=== PATIENT | female | born 1980 | race Caucasian/White ===

== ENCOUNTER 2020-08-04 01:09 | Outpatient (CLI) | payer OTHER, SELFPAY ==
[2020-08-04 19:31] LABS: SARS-CoV-2 RNA PCR Negative
== END 2020-08-04 01:10 | disposition home or self-care (01) ==
LOC: ANHCOVIDDT 01:09
PROVIDERS: PCP Family Medicine; Visit Provider Obstetrics & Gynecology
DX: Z01.818 Encounter for other preprocedural examination (principal); Z20.828 Contact with and (suspected) exposure to other viral communicable diseases
CPT/HCPCS: 87635; C9803; U0003

== ENCOUNTER 2020-08-06 00:56 | Day surgery (SDC) | payer OTHER, SELFPAY ==
[2020-07-27 13:38] VITALS: BMI 25.2
--- NOTE | 2020-08-05 14:17 | WPDANESEPP ---
Anes - Eval Pre Procedure Procedure: Operation Date: 08/06/20 07:30 Proposed Procedures p Loop Electrical Excision Procedure - Jose Reza MD Date/Time: 08/05/20 14:17 Pre Op Diagnosis: HUSSAIN II Patient Data Age: 40 Gender: F Height: 1.6 m Weight: 64.5 kg Allergies Allergy/AdvReac Type Severity Reaction Status Date / Time Penicillins Allergy Severe Difficulty Verified 07/27/20 12:19 Breathing/RASH adhesive AdvReac Mild Hives Verified 07/27/20 12:19 Home Medications Medication Instructions Recorded Confirmed Type Adults Multivitamin 1 tablet PO DAILY 07/06/19 07/27/20 History Calcium 600 + D(3) 1 cap PO DAILY 07/06/19 07/27/20 History cetirizine 10 mg PO DAILY 07/06/19 07/27/20 History citalopram [Celexa] 40 mg PO DAILY 07/06/19 07/27/20 History omeprazole 20 mg PO BID 07/06/19 07/27/20 History topiramate 50 mg PO BID 07/06/19 07/27/20 History cholecalciferol (vitamin D3) 50 mcg PO DAILY 07/27/20 07/27/20 History fluticasone propionate 2 spray INTRANASAL DAILY 07/27/20 07/27/20 History hydroxyzine HCl 25 mg PO PRN PRN 07/27/20 07/27/20 History Patient hx anesthesia problems: none Family hx anesthesia problems: none PMFSH Past Medical History Medical History Anxiety Depression GERD (gastroesophageal reflux disease) Surgical History Surgical History H/O bilateral salpingectomy Family History Family History Grandparent Family history of blood dyscrasia Hypertension Cerebrovascular accident Family history of malignant neoplasm of breast, Onset Age: 63 Mother Family history of diabetes mellitus in first degree relative Social History Social History Years smoked: 10 Smoking status: Former smoker Tobacco type: cigarettes Second hand tobacco smoke exposure: No Smoking end date: 08/10/09 Alcohol intake: current Drinks per week: 3 Gender identity (if verbalized by the patient): Female Spiritual care concerns: No Exam Day of Procedure 08/05/20 14:17 Patient weight: overweight
--- NOTE | 2020-08-05 21:47 | PM.IMHP ---
H&P: HPI History of Present Illness Date/Time: 08/05/20 21:47 Chief Complaint: CIN3. 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 She was recommended for LEEP cone. She has been counseled regarding risk benefit of LEEP cone and risk of not performing an ablative procedure. Her questions were answered. She agrees to LEEP cone. Review of Systems Review of Systems: All systems reviewed & are unremarkable except as noted in HPI and below Cardiovascular: Cardiovascular: Reports no additional cardiovascular complaints, Denies chest pain and Denies dyspnea Respiratory: Respiratory: Reports no additional respiratory complaints and Denies dyspnea Gastrointestinal: Gastrointestinal: Reports abdominal pain, Denies change in bowel habits, Denies diarrhea, Denies nausea and Denies vomiting Genitourinary: Genitourinary: Reports pelvic pain Musculoskeletal: Musculoskeletal: Reports back pain Integumentary/Breasts: Skin/Breast: Reports system reviewed and no additional complaints, except as docu Neurologic: Reports system reviewed and no additional complaints, except as documented PMFSH Past Medical History Medical History Anxiety Depression GERD (gastroesophageal reflux disease) Surgical History Surgical History H/O bilateral salpingectomy Family History Family History Grandparent Family history of blood dyscrasia Hypertension Cerebrovascular accident Family history of malignant neoplasm of breast, Onset Age: 63 Mother Family history of diabetes mellitus in first degree relative Social History Social History Years smoked: 10 Smoking status: Former smoker Tobacco type: cigarettes Second hand tobacco smoke exposure: No Smoking end date: 08/10/09 Alcohol intake: current Drinks per week: 3 Living arrangements: with friend(s) Gender identity (if verbalized by the patient): Female Spiritual care concerns: No Meds Home Medications and Allergies Home Medications Medication Instructions Recorded Confirmed Type Adults Multivitamin 1 tablet PO DAILY 07/06/19 08/06/20 History Calcium 600 + D(3) 1 cap PO DAILY 07/06/19 08/06/20 History cetirizine 10 mg PO DAILY 07/06/19 08/06/20 History citalopram [Celexa] 40 mg PO DAILY 07/06/19 08/06/20 History omeprazole 20 mg PO BID 07/06/19 08/06/20 History topiramate 50 mg PO BID 07/06/19 08/06/20 History cholecalciferol (vitamin D3) 50 mcg PO DAILY 07/27/20 08/06/20 History fluticasone propionate 2 spray INTRANASAL DAILY 07/27/20 08/06/20 History hydroxyzine HCl 25 mg PO PRN PRN 07/27/20 08/06/20 History Allergies Allergy/AdvReac Type Severity Reaction Status Date / Time Penicillins Allergy Severe Difficulty Verified 08/06/20 06:15 Breathing/RASH adhesive AdvReac Mild Hives Verified 08/06/20 06:15 Exam Const: Orientation/consciousness: oriented to person and oriented to place HENMT: Head: normal to inspection Eyes: General: appearance normal, both eyes and all related structures Resp: Effort & Inspection: normal respiratory effort Auscultation: clear to auscultation bilaterally Cardio: Rate: regular rate Rhythm: regular rhythm GI: Inspection: normal to inspection GI Palp: No Rebound tenderness present : External Female Exam: normal external appearance Speculum Exam - Vagina: normal appearance of the vagina Speculum Exam - Cervix: normal appearance of the cervix Bimanual exam- vagina & uterus: normal bimanual exam and non-tender Bimanual Exam- Adnexa, other: normal adnexae Neuro: General: oriented to person and oriented to place Cognition (Neuro): normal cognition Extrem: Gen
[2020-08-06 06:12] VITALS: BP 116/97; PULSE 82; RESP 16; TEMP 36.8; O2SAT 99
[2020-08-06 06:13] VITALS: BMI 27.6
[2020-08-06] MEDS: ACETAMINOPHEN 500 MG TABLET 1000 MG PO (06:20)
--- NOTE | 2020-08-06 06:44 | WPDANESEPPF ---
Anes - Initial Pre Proc Eval Procedure: Operation Date: 08/06/20 07:30 Proposed Procedures p Loop Electrical Excision Procedure - Jose Reza MD Date/Time: 08/06/20 06:44 Surgeon: Jose Reza MD Pre Op Diagnosis: HUSSAIN II Patient Data Age: 40 Gender: F Height: 1.6 m Weight: 70.9 kg Last Vital Signs Temp 36.8 C 08/06/20 06:12 Pulse 82 08/06/20 06:12 Resp 16 08/06/20 06:12 BP 116/97 H 08/06/20 06:12 Pulse Ox 99 08/06/20 06:12 Allergies Allergy/AdvReac Type Severity Reaction Status Date / Time Penicillins Allergy Severe Difficulty Verified 08/06/20 06:15 Breathing/RASH adhesive AdvReac Mild Hives Verified 08/06/20 06:15 Home Medications Medication Instructions Recorded Confirmed Type Adults Multivitamin 1 tablet PO DAILY 07/06/19 08/06/20 History Calcium 600 + D(3) 1 cap PO DAILY 07/06/19 08/06/20 History cetirizine 10 mg PO DAILY 07/06/19 08/06/20 History citalopram [Celexa] 40 mg PO DAILY 07/06/19 08/06/20 History omeprazole 20 mg PO BID 07/06/19 08/06/20 History topiramate 50 mg PO BID 07/06/19 08/06/20 History cholecalciferol (vitamin D3) 50 mcg PO DAILY 07/27/20 08/06/20 History fluticasone propionate 2 spray INTRANASAL DAILY 07/27/20 08/06/20 History hydroxyzine HCl 25 mg PO PRN PRN 07/27/20 08/06/20 History Patient hx anesthesia problems: none Family hx anesthesia problems: none PMFSH Past Medical History Medical History Anxiety Depression GERD (gastroesophageal reflux disease) Surgical History Surgical History H/O bilateral salpingectomy Family History Family History Grandparent Family history of blood dyscrasia Hypertension Cerebrovascular accident Family history of malignant neoplasm of breast, Onset Age: 63 Mother Family history of diabetes mellitus in first degree relative Social History Social History Years smoked: 10 Smoking status: Former smoker Tobacco type: cigarettes Second hand tobacco smoke exposure: No Smoking end date: 08/10/09 Alcohol intake: current Drinks per week: 3 Living arrangements: with friend(s) Gender identity (if verbalized by the patient): Female Spiritual care concerns: No Anes - Eval Final PreProcedure Day of Procedure 08/06/20 06:44 Patient weight: overweight Heart: regular rate and rhythm Lungs: clear to auscultation and normal air movement Airway: Mallampati scale class II Neurological: alert and oriented Last oral intake: >/= 8 hours ASA classification: II Emergent: no Anesthetic plan: proceed Anesthesia type and monitoring: general GIVS and standard monitoring Informed Consent: The patient's anesthetic plan and its attendant risks and benefits were discussed with the patient/family/POA. Questions were solicited and answers provided to the satisfaction of the patient/family/POA.
[2020-08-06] MEDS: LACTATED RINGERS 1,000 ML 30 ML IV CONT (06:54)
--- NOTE | 2020-08-06 07:23 | WPDHPUPDATE1 ---
History and Physical Update Update Date/Time: 08/06/20 07:23 History and Physical has been reviewed, including an updated exam of the patient. There are NO changes in the patient's condition. Risks, benefits, and alternatives have been discussed and questions answered. Patient agrees to proceed with procedure.
[2020-08-06] MEDS: CLINDAMYCIN 900 MG/D5W 50 ML 900 MG/50 ML PIGGYBACK 50 MG IVPB (07:38)
[2020-08-06] MEDS: KETOROLAC 30 MG/ML VIAL (*BKC) IV PUSH (07:46)
[2020-08-06 07:52] VITALS: BP 101/53; PULSE 80; RESP 16; O2SAT 99
--- NOTE | 2020-08-06 07:52 | PM.PROC ---
Procedure Note - Detailed Date of procedure: 08/06/20 Pre-op diagnosis: HUSSAIN II CIN3 Post-op diagnosis: same Procedure performed: Loop electrosurgical excision procedure Description of procedure: After informed consent was obtained. She was taken to OR. IV sedation was administered. She was placed in high lithotomy position and prepped and draped in sterile fashion. Attention was turned to vagina. Speculum inserted. Single tooth tenaculum placed on anterior cervix. 10cc of 1% lidocaine plain injected at cervix. Lugols solution placed prior to lidocaine. The transformation zone was enclosed in ectocervix pass with LEEP instrument, encompassing hypopigmented. An endocervical pass was performed. Hemostasis obtained with cautery and Monsels. Sponge count correct. Patient tolerated procedure well. Anesthesia: MAC and local Surgeon: Jose Reza MD Estimated blood loss (mL): 5 Drains: No Packing: No Pathology: yes (1.LEEP ectocervix pass 2. LEEP endocervix pass.) Complications: No immediate complications Condition: stable Disposition: PACU Findings: Hypopigmentation surrounding the TZ.
[2020-08-06] MEDS: LIDO 1%/EPINEPHRINE 1:100,000 50 ML VIAL 10 ML INFILTRATE (08:02)
[2020-08-06 08:20] VITALS: BP 102/72; PULSE 73; RESP 16; O2SAT 99
== END 2020-08-06 08:28 | disposition home or self-care (01) ==
PROVIDERS: PCP Family Medicine; Visit Provider Obstetrics & Gynecology
PROC: 0UBC7ZZ Excision of Cervix, Via Natural or Artificial Opening (ICD-10-PCS; CPT 57522; principal; 2020-08-06 07:30)
DX: N87.1 Moderate cervical dysplasia (principal); K21.9 Gastro-esophageal reflux disease without esophagitis; F41.8 Other specified anxiety disorders; Z87.891 Personal history of nicotine dependence
CPT/HCPCS: 57522; 88305; 88307; A9270; J1885; J2250; J2405; J2704; J3010; J7120

== ENCOUNTER 2022-01-27 07:29 | Outpatient (CLI) | payer OTHER, SELFPAY | END 2022-01-27 07:30 | disposition home or self-care (01) | PROVIDERS: Visit Provider Obstetrics & Gynecology | DX: N87.9 Dysplasia of cervix uteri, unspecified (principal); Z01.818 Encounter for other preprocedural examination | CPT/HCPCS: 36415; 86850; 86900; 86901 ==

== ENCOUNTER 2022-01-29 01:02 | Day surgery (SDC) | payer OTHER, SELFPAY ==
--- NOTE | 2022-01-23 17:17 | SUR.PREOP ---
Report to the Outpatient Waiting Room, entrance under the green pavilion located off [facility], at time 0600 on date 01/29/22 OR Time: 0730. - You and your visitor will be asked a series of questions to screen for COVID 19 for your protection. - Only one visitor is allowed at this time. - The patient visitor is requested to leave or wait in car when not with patient. - A mask is required within the hospital. Patients may have clear liquids (water, carbonated beverages, clear teas, apple juice) until 3 hours prior to surgery with a maximum of 20 ounces. - No food from midnight until time of surgery BEFORE 0430 AM - Infants may have breast milk until 4 hours before surgery, formula 6 hours prior to surgery. - Children will be allowed to drink immediately following surgery. If applicable, please bring a bottle or sippy cup to assist with drinking. Juice, water, soda, and popsicles are readily available. For infants on formula, please bring formula the day of surgery. Pacifiers are allowed. Take the following medications with a SIP of water the morning of surgery: VENLAFAXINE Medications to discontinue per physician __HOLD VITAMINS AND SUPPLEMENTS FOR 3 DAYS PRIOR__ Date to take last dose Please no make-up, nail pitcairn islander, hairspray, perfume, deodorant, or body powder the day of surgery. No jewelry (including any body piercings) or valuables the day of surgery, leave them at home. Please take a shower or bath the night before, or the morning of, surgery with an antibacterial soap. Wear comfortable, loose fitting clothing. Children are encouraged to wear pajamas. - Jewelry must be removed prior to entering the operating room. Rings and piercings that are not removed may be cut off. - The hospital will not accept responsibility for valuables. - Please leave all valuables, including medications, at home the day of surgery. If you are going home after surgery, a licensed construction driver must drive you home. - NO public transportation without another adult. - We recommend that an adult stay with you for 24 hours following discharge. - We also recommend that you do not drive, make important decision, drink alcoholic beverages, or take any drugs that were not prescribed by your health care provider for at least 24 hours after your discharge time. For Pediatric surgeries, we recommend two adults accompany the child home (only one inside the building at this time). Follow any additional instructions given to you from your surgeon. If you or anyone in your household have experienced Covid symptoms in the past week, please notify your surgeon or the nurse liaison at the phone number below for possible testing. Telephone instructions given to _PATIENT___and asked if any additional questions and then verbalized understanding. Patient advised to call surgeon office or pre surgery nurse liaison [phone] if any additional questions.
--- NOTE | 2022-01-28 08:13 | PM.IMHP ---
H&P: HPI History of Present Illness Date/Time: 01/28/22 08:13 Chief Complaint: Perisistant dysplasia Narrative: ? She is scheduled for robotic assisted laparoscopic vaginal hysterectomy. She has a history of HUSSAIN 3.? She had a subsequent LEEP procedure. Subsequent Pap smear was low-grade.? Subsequent biopsy was positive for the ECC of HUSSAIN 1.? She does not want to have anymore colposcopies or LEEP procedures she wants definitive treatment of the persistent dysplasia with a hysterectomy. she has had a prior salpingectomy. She is aware that with a hysterectomy and for the indication of dysplasia she will have to get subsequent Pap smears for several years after hysterectomy. Review of Systems Review of Systems: All systems reviewed & are unremarkable except as noted in HPI and below Constitutional: Constitutional: Reports no additional constitutional complaints Eyes: Eyes: Reports no additional eye complaints Cardiovascular: Cardiovascular: Reports no additional cardiovascular complaints Respiratory: Respiratory: Reports no additional respiratory complaints Gastrointestinal: Gastrointestinal: Reports no additional gastrointestinal complaints Genitourinary: Genitourinary: Reports no additional female genitourinary complaints and Reports as per HPI Integumentary/Breasts: Skin/Breast: Reports system reviewed and no additional complaints, except as docu Neurologic: Reports system reviewed and no additional complaints, except as documented Psychiatric: Psychiatric: Reports no additional psychiatric complaints Hematologic/Lymphatic: Hematologic/Lymphatic: Reports no additional hematologic/lymphatic complaints PMFSH Past Medical History Medical History Anxiety Depression GERD (gastroesophageal reflux disease) LGSIL on Pap smear of cervix Surgical History Surgical History H/O bilateral salpingectomy H/O LEEP H/O left knee surgery History of 2 sections History of placement of ear tubes Family History Family History Grandparent Family history of blood dyscrasia Hypertension Cerebrovascular accident Family history of malignant neoplasm of breast, Onset Age: 63 Mother Family history of diabetes mellitus in first degree relative Social History Social History Years smoked: 10 Smoking status: Never smoker Tobacco type: cigarettes Second hand tobacco smoke exposure: No Smoking end date: 08/10/09 Alcohol intake: current Drinks per week: 3 Living arrangements: with family Gender identity (if verbalized by the patient): Female Spiritual care concerns: No Meds Home Medications and Allergies Home Medications Medication Instructions Recorded Confirmed Type calcium carbonate 600 mg-vitamin 1 cap PO DAILY 07/06/19 01/29/22 History D3 5 mcg (200 unit) capsule (Calcium 600 + D(3)) cetirizine 10 mg tablet 10 mg PO DAILY 07/06/19 01/29/22 History omeprazole 20 mg tablet,delayed 20 mg PO BID 07/06/19 01/29/22 History release topiramate 50 mg tablet 50 mg PO BID MIGRAINS 07/06/19 01/29/22 History hydroxyzine HCl 25 mg tablet 25 mg PO PRN PRN Anxiety 07/27/20 01/29/22 History venlafaxine 75 mg capsule,extended 75 mg PO DAILY 07/09/21 01/29/22 History release 24 hr (Effexor XR) multivitamin with minerals 1 tablet PO DAILY 01/23/22 01/29/22 History (Hair,Skin and Nails tablet) omega-3 fatty acids-vitamin E 1 cap PO DAILY 01/23/22 01/29/22 History 1,000 mg capsule Allergies Allergy/AdvReac Type Severity Reaction Status Date / Time Penicillins Allergy Severe Difficulty Verified 01/29/22 06:24 Breathing/RASH adhesive AdvReac Mild Hives Verified 01/29/22 06:24 Exam Const: General: comfortable and no acute distress Orientat
[2022-01-29] VITALS (10 sets, daily range): BP systolic 117–141; BP diastolic 67–89; PULSE 60–103; RESP 16–18; TEMP 36.2–36.9; O2SAT 99–100; BMI 28.8
[2022-01-29] MEDS: ACETAMINOPHEN 500 MG TABLET 1000 MG PO (06:31)
[2022-01-29] MEDS: LACTATED RINGERS 1,000 ML 30 ML IV CONT (06:40)
[2022-01-29] MEDS: KETOROLAC 15 MG/ML VIAL (*BKC) IV PUSH (06:52)
--- NOTE | 2022-01-29 07:08 | WPDANESEPPF ---
Anes - Initial Pre Proc Eval Procedure: Operation Date: 01/29/22 07:30 Proposed Procedures p Robotic Total Hysterectomy with Possible Bilateral Oophorectomy - Jose Reza MD Date/Time: 01/29/22 07:08 Surgeon: Jose Reza MD Pre Op Diagnosis: HUSSAIN 1 Patient Data Age: 41 Gender: F Height: 1.6 m Weight: 73.8 kg Last Vital Signs Temp 36.2 C L 01/29/22 06:16 Pulse 77 01/29/22 06:16 Resp 16 01/29/22 06:16 BP 121/83 01/29/22 06:16 Pulse Ox 100 01/29/22 06:16 O2 Del Method Room Air 01/29/22 06:16 Allergies Allergy/AdvReac Type Severity Reaction Status Date / Time Penicillins Allergy Severe Difficulty Verified 01/29/22 06:24 Breathing/RASH adhesive AdvReac Mild Hives Verified 01/29/22 06:24 Home Medications Medication Instructions Recorded Confirmed Type calcium carbonate 600 mg-vitamin 1 cap PO DAILY 07/06/19 01/29/22 History D3 5 mcg (200 unit) capsule (Calcium 600 + D(3)) cetirizine 10 mg tablet 10 mg PO DAILY 07/06/19 01/29/22 History omeprazole 20 mg tablet,delayed 20 mg PO BID 07/06/19 01/29/22 History release topiramate 50 mg tablet 50 mg PO BID MIGRAINS 07/06/19 01/29/22 History hydroxyzine HCl 25 mg tablet 25 mg PO PRN PRN Anxiety 07/27/20 01/29/22 History venlafaxine 75 mg capsule,extended 75 mg PO DAILY 07/09/21 01/29/22 History release 24 hr (Effexor XR) multivitamin with minerals 1 tablet PO DAILY 01/23/22 01/29/22 History (Hair,Skin and Nails tablet) omega-3 fatty acids-vitamin E 1 cap PO DAILY 01/23/22 01/29/22 History 1,000 mg capsule Patient hx anesthesia problems: none Family hx anesthesia problems: none Results Review: All pre-operative results and documents have been reviewed as part of the pre-operative evaluation. [facility] Past Medical History Medical History Anxiety Depression GERD (gastroesophageal reflux disease) LGSIL on Pap smear of cervix Surgical History Surgical History H/O bilateral salpingectomy H/O LEEP H/O left knee surgery History of 2 sections History of placement of ear tubes Family History Family History Grandparent Family history of blood dyscrasia Hypertension Cerebrovascular accident Family history of malignant neoplasm of breast, Onset Age: 63 Mother Family history of diabetes mellitus in first degree relative Social History Social History Years smoked: 10 Smoking status: Never smoker Tobacco type: cigarettes Second hand tobacco smoke exposure: No Smoking end date: 08/10/09 Alcohol intake: current Drinks per week: 3 Living arrangements: with family Gender identity (if verbalized by the patient): Female Spiritual care concerns: No Anes - Eval Final PreProcedure Day of Procedure 01/29/22 07:08 Patient weight: overweight Heart: regular rate and rhythm Lungs: clear to auscultation Airway: Mallampati scale class II Neurological: alert and oriented Last oral intake: >/= 8 hours ASA classification: II Emergent: no Anesthetic plan: proceed Anesthesia type and monitoring: general ETT and standard monitoring Results Review: All pre-operative results and documents have been reviewed as part of the pre-operative evaluation. Informed Consent: The patient's anesthetic plan and its attendant risks and benefits were discussed with the patient/family/POA. Questions were solicited and answers provided to the satisfaction of the patient/family/POA.
--- NOTE | 2022-01-29 07:14 | WPDHPUPDATE1 ---
History and Physical Update Update Date/Time: 01/29/22 07:14 History and Physical has been reviewed, including an updated exam of the patient. There are NO changes in the patient's condition. Risks, benefits, and alternatives have been discussed and questions answered. Patient agrees to proceed with procedure.
[2022-01-29] MEDS: ceFAZolin 2 GM/D5W 50 ML 2 GM/50 ML BAG IVPB (07:21)
--- NOTE | 2022-01-29 10:20 | W.PM.PROC2 ---
Procedure Note - Detailed Date of Procedure 01/30/22 Pre-op Diagnosis Persistent cervical dysplasia. Post-op Diagnosis Same Procedure Performed Robotic assisted laparoscopic vaginal hysterectomy 2. Lysis of adhesions Surgeon Jose Reza MD Relay Repairer Juan Keenan Anesthesia General Indications patient with a history of severe dysplasia has had subsequent abnormal Pap smears with persistent mild dysplasia she will not do any further diagnostic testing for the dysplasia and desires definitive treatment of the persistent dysplasia with hysterectomy. Findings Normal appearing uterus there was a band adhesions on the left lower abdomen of the omental tissue there was also noted to be a lower abdominal hernia small. Ovaries were normal bilateral fallopian tubes are absent. Description of Procedure After informed consent was obtained she was taken to the operating room and general endotracheal anesthesia was administered. She was placed in low lithotomy position. An exam under anesthesia was performed. Uterus normal size, no adnexal masses palpated. She was and prepped and draped in sterile fashion. Turk catheter placed in bladder. Attention was turned to the vagina speculum was inserted. Single-tooth tenaculum placed on anterior lip of the cervix the uterus sounded to initially 6 cm. The size 6 manipulator would not inflate. The cervix was dilated to a 8 Andrea dilator. The sound was performed again and the uterus was sounded to 10 cm. A size Eight uterine manipulator was inserted and secured. A size 3.0 colp cup was secured in the vagina. Then attention was turned to the abdomen with new sterile gloves. .25% marcaine injected subcutaneously. An incision was made horizontal 2 cm above the umbilicus. a Veress needle was inserted. Confirmation into the abdomen obtained with normal flow of fluid through the Veress needle port and normal peritoneal pressures. The 8 mm robotic port was inserted into abdomen. This was done under laparoscopic visualization. A small incision was made approximately 6 cm lateral to the port on the left side of the port. A size 8mm robotic port was inserted under laparoscopic visualization into the abdomen on the left side. Attention was turned to the right side of the abdomen and an incision was made with a scalpel after Marcaine was injected subcutaneously. And an 8 mm robotic port was inserted under laparoscopic visualization. Superior to this and medial an incision was made and an dental assistant medical assistant port was inserted 10 mm. This was done under laparoscopic visualization. Patient was placed in Trendelenburg position. The robotic arms were then attached. The adhesion band of omentum to the lower left abdominal wall was lysed using the vessel sealer hemostasis was noted. The right round ligament was ligated with the vessel sealer the anterior leaf of the broad ligament was dissected anteriorly. The right side of the bladder was dissected from the lower uterine segment and upper cervix. The right ovarian ligament was ligated with the vessel sealer. The a posterior leaf of the broad ligament was further dissected. The uterine vessels on the right were skeletonized. The ascending uterine vessels on the right were cauterized. The uterine vessels were ligated. Attention was turned to the left round ligament which was ligated and the anterior leaf of the broad ligament was dissected anteriorly. The rest of the vesicouterine peritoneum was dissected off of the uterus. Once the bladder was dissected below the colp cup then the posterior leaf of the broad ligament was further dissected. The ovarian ligament was ligated. The ascending uterine vessels were ligated with the Vessel sealer. The uterine arteries were skeletonized. The uterine arteries were ligated. The cardinal ligaments were ligated. This was done on both sides. An incision was made anterior colpotomy incision was made and this was carried around until
--- NOTE | 2022-01-29 11:09 | ADMGEN ---
1106-This patient, Alysa Sullivan, was admitted to [facility] 2[facility] Floor Room 289-00. Patient oriented to hospital policies and general routines including ID bracelet, bed and alarms, visiting hours, pain management, procedures, bathroom and other care routines, personal items, smoking policy, room service/diet, and visiting hours. Information on how to activate the Rapid Response Team has been discussed. Patient is are encouraged to report perceived risks to care and to ask questions if they do not understand what they are told or what they should do.
[2022-01-29] MEDS: DEXTROSE 5%/0.45% SOD CHL 1,000 ML 125 ML IV CONT (11:22)
[2022-01-29] MEDS: HYDROcodone/acetaminophen (*CRX) 5-325 MG TABLET 1 TAB PO (16:06)
[2022-01-29] MEDS: IBUPROFEN 600 MG TABLET PO (16:07)
== END 2022-01-29 17:19 | disposition home or self-care (01) ==
LOC: ANHSURGERY 05:59 → ANHOB2 11:07
PROVIDERS: Visit Provider Obstetrics & Gynecology
PROC: (CPT 58550; principal; 2022-01-29 07:30)
DX: N87.0 Mild cervical dysplasia (principal); N73.6 Female pelvic peritoneal adhesions (postinfective); K46.9 Unspecified abdominal hernia without obstruction or gangrene; K21.9 Gastro-esophageal reflux disease without esophagitis; F41.9 Anxiety disorder, unspecified; F32.A Depression, unspecified; Z87.891 Personal history of nicotine dependence
CPT/HCPCS: 58550; S2900; 88307; 99199; A9270; J0690; J1100; J1170; J1885; J2250; J2405; J2704; J2710; J3010; J7030; J7120